=== PATIENT | male | born 1970 | race Caucasian/White ===

== ENCOUNTER 2019-05-15 19:40 | Emergency (ER) | payer OTHER ==
[~2019-05-15] VITALS: Ht 175.3 cm; Wt 84.4 kg
[2019-05-15] MEDS ORDERED: INTESTINEX680 M1 PO (23:17)
[2019-05-15] MEDS ORDERED: VALACYCLOVIR1000 MG PO (23:17)
[2019-05-15] MEDS ORDERED: BACTRIM DS TAB1 EACH PO (23:17)
[2019-05-15] MEDS ORDERED: NEURONTIN300 MG PO (23:17)
== END 2019-05-15 23:11 | disposition home or self-care (01) ==
LOC: ER 19:40
DX: B02.8 Zoster with other complications (principal); L03.211 Cellulitis of face

== ENCOUNTER 2019-05-17 06:49 | Emergency (ER) | payer OTHER ==
[~2019-05-17] VITALS: Ht 182.9 cm; Wt 106.6 kg
[~2019-05-17 06:49] MED LIST: BACTRIM DS TAB1 EACH PO; INTESTINEX680 M1 PO; NEURONTIN300 MG PO; VALACYCLOVIR1000 MG PO
[2019-05-17] MEDS ORDERED: VIROPTIC7.5 ML OP (09:03)
== END 2019-05-17 09:43 | disposition home or self-care (01) ==
LOC: ER 06:49
DX: B02.30 Zoster ocular disease, unspecified (principal)